=== PATIENT | male | born 1985 | race Caucasian/White ===

== ENCOUNTER 2016-10-29 07:57 | Emergency (ER) | payer OTHER ==
[~2016-10-29] VITALS: Ht 167.6 cm; Wt 59.0 kg
--- NOTE | 2016-10-29 08:06 | NUR ---
DR Lutz at the bedside for eval and exam.
[2016-10-29] MEDS ORDERED: predniSONE 50 MG TABLET PO ONE (08:15)
--- NOTE | 2016-10-29 08:15 | NUR ---
Patient discharged to home in stable conditon. Written and verbal after care instructions given. Patient verbalizes understanding of instructions.
[2016-10-29 08:17] VITALS: BP 110/73
[2016-10-29] MEDS ORDERED: predniSONE 50 MG TABLET ONE (08:23)
== END 2016-10-29 08:17 | disposition home or self-care (01) ==
LOC: ER 07:57
DX: S90.562A Insect bite (nonvenomous), left ankle, initial encounter (principal); S60.561A Insect bite (nonvenomous) of right hand, initial encounter; T78.40XA Allergy, unspecified, initial encounter; J45.909 Unspecified asthma, uncomplicated; W57.XXXA Bitten or stung by nonvenomous insect and other nonvenomous arthropods, initial encounter; Y93.89 Activity, other specified; Y92.89 Other specified places as the place of occurrence of the external cause; Y99.8 Other external cause status
CPT/HCPCS: A4663; J7512

== ENCOUNTER 2016-11-08 17:51 | Emergency (ER) | payer OTHER ==
[~2016-11-08] VITALS: Ht 167.6 cm; Wt 59.0 kg
--- NOTE | 2016-11-08 18:34 | NUR ---
mse completed, pt d/c'd home, aci/rx x1 given. opt ambulated w/o diff/took all belongings.
[2016-11-08 18:36] VITALS: BP 128/71
== END 2016-11-08 18:36 | disposition home or self-care (01) ==
LOC: ER 17:52
DX: L30.9 Dermatitis, unspecified (principal); J45.909 Unspecified asthma, uncomplicated
CPT/HCPCS: A4663

== ENCOUNTER 2023-06-26 09:33 | Emergency (ER) | payer BC, MEDICAID ==
[~2023-06-26] VITALS: Ht 167.6 cm; Wt 59.0 kg
[2023-06-26 10:22] LABS: BASOPHILS % (AUTO) 0.8 % (0.0-2.0); EOSINOPHILS # (AUTO) 0.1 K/uL (0.0-0.7); EOSINOPHILS % (AUTO) 1.6 % (0.0-7.0); HEMATOCRIT 41.4 % (36.7-47.1); HEMOGLOBIN 14.2 g/dL (12.5-16.3); LYMPHOCYTES % (AUTO) 25.2 % (20.5-51.5); MEAN CORPUSCULAR HEMOGLOBIN 32.1 uug (23.8-33.4); MEAN CORPUSCULAR HGB CONC 34 g/dL (32.5-36.3); MONOCYTES # (AUTO) 0.3 K/uL (0.1-1.30); MONOCYTES % (AUTO) 7.3 % (0.0-11.0); NEUTROPHILS # (AUTO) 2.6 K/uL (1.8-8.9); NEUTROPHILS % (AUTO) 65.1 % (38.5-71.5); PLATELET COUNT (AUTO) 200 K/uL (152-348); RED BLOOD CELL COUNT(AUTO) 4.41 MIL/uL (4.06-5.63); RED CELL DISTRIBUTION WIDTH 13.6 % (12.1-16.2)
[2023-06-26 10:29] LABS: DIFFERENTIAL COMMENT 1
[2023-06-26 10:34] LABS: *BILIRUBIN,URIN NEGATIVE (NEGATIVE); *CLARITY,URINE CLEAR (CLEAR); *COLOR,URINE LIGHT YELLOW (YELLOW); *KETONES,URINE NEGATIVE (NEGATIVE); *PROTEIN,URINE NEGATIVE (NEGATIVE); *UROBILINOGEN,URINE 0.2 E.U./dl (NORMAL); LEUKOCYTE ESTERASE ,URINE NEGATIVE (NEGATIVE); NITRITE, URINE NEGATIVE (NEGATIVE); UGLUCOSE NEGATIVE (NEGATIVE)
[2023-06-26 10:38] LABS: ALANINE AMINOTRANSFERASE 24 U/L (16-63); ALBUMIN 4.7 g/dL (3.4-5.0); ALKALINE PHOSPHATASE 50 U/L (50-136); ASPARTATE AMINOTRANSFERASE 10 U/L (15-37); BILIRUBIN,DIRECT 0.1 mg/dL (0.0-0.2); BILIRUBIN,TOTAL 0.6 mg/dL (0.2-1.0); CALCIUM 9.5 mg/dL (8.5-10.1); CARBON DIOXIDE 31 mmol/L (21-32); CHLORIDE 103 mmol/L (98-107); CREATININE 0.9 mg/dL (0.6-1.3); GLUCOSE 96 mg/dL (74-106); LIPASE 24 U/L (16-77); POTASSIUM 4.3 mmol/L (3.5-5.1); SODIUM SERUM 139 mmol/L (136-145); TOTAL PROTEIN, SERUM 7.7 g/dL (6.4-8.2); UREA NITROGEN, BLOOD 16 mg/dL (7-18)
[2023-06-26 10:45] LABS: *BLOOD, URINE NEGATIVE (NEGATIVE)
[2023-06-26 11:39] VITALS: BP 118/79; O2SAT 99
== END 2023-06-26 11:41 | disposition home or self-care (01) ==
LOC: ER 09:33
DX: R10.31 Right lower quadrant pain (principal); J45.909 Unspecified asthma, uncomplicated; K21.9 Gastro-esophageal reflux disease without esophagitis; Z60.2 Problems related to living alone
CPT/HCPCS: 36415; 71045; 83690; 84484; 85025; 85730; A4606; A4663

== ENCOUNTER 2024-02-02 15:23 | Emergency (ER) | payer BC, MEDICAID ==
[~2024-02-02] VITALS: Ht 167.6 cm; Wt 60.3 kg
[2024-02-02] MEDS ORDERED: KETOROLAC TROMETHAMINE 15 MG INJ ONE (15:58)
[2024-02-02] MEDS: KETOROLAC TROMETHAMINE 15 MG INJ IM ONE (16:08)
[2024-02-02] MEDS ORDERED: METH4TAB3 PO (16:39)
[2024-02-02] MEDS ORDERED: LIDO30AD10 TP (16:39)
[2024-02-02] MEDS ORDERED: IBUP-1955 PO (16:39)
[2024-02-02 16:44] VITALS: BP 117/76; O2SAT 97
== END 2024-02-02 16:50 | disposition home or self-care (01) ==
LOC: ER 15:24
DX: M54.41 Lumbago with sciatica, right side (principal); J45.909 Unspecified asthma, uncomplicated; K21.9 Gastro-esophageal reflux disease without esophagitis; Z60.2 Problems related to living alone; Z88.7 Allergy status to serum and vaccine
CPT/HCPCS: 99283; 96372; J1885; A4606; A4663